=== PATIENT | female | born 1955 | race Hispanic/Latino ===

== ENCOUNTER 2025-02-02 08:00 | Outpatient (CLI) | payer MEDICARE | END 2025-02-02 12:00 | disposition home or self-care (01) | LOC: CSHCT 08:00 | PROVIDERS: ATTEND Family Medicine | DX: Z12.2 Encounter for screening for malignant neoplasm of respiratory organs (principal); Z87.891 Personal history of nicotine dependence; R91.8 Other nonspecific abnormal finding of lung field; I25.10 Atherosclerotic heart disease of native coronary artery without angina pectoris | CPT/HCPCS: 71271 ==